=== PATIENT | male | born 1985 | race Caucasian/White ===

== ENCOUNTER 2018-04-22 14:19 | Emergency (ER) | payer OTHER ==
[~2018-04-22] VITALS: Ht 172.7 cm; Wt 61.2 kg
[~2018-04-22 14:19] MED LIST: APAP500 PO; BENTYL 20 MG TA20 M1 PO; BENTYL20 MG PO; CHLORPROMAZINE25 M1; CHLORPROMAZINE25 M1 PO; CHLORPROMAZINE25 M3 PO; CIPRO500 M1 PO; FLEXERIL PO; HYDROCODON-ACE1 EAC7 PO; HYDROCODON-ACE1 EACH PO; HYDROCODONE-AP1 EAC6 PO; IBUPROFEN 800800 M1 PO; IBUPROFEN 800800 MG PO; MOBIC15 MG PO; NICOTINE TRANSD21 M1 TRANSDERM; NICOTINE TRANSDE7 MG TD; NOHOMEMEDICATIONS; NORCO 5-325 TA1 EAC1 PO; NORCO 5-325 TA1 EACH PO; NORCO 7.5-3251 EACH PO; OMEPRAZOLE 20 M20 M1 PO; PERCOCET 5-3251 EACH PO; PHENERGAN 25 MG25 M1 PO; PROMETHAZINE12.5 M1 PO; ROBAXIN500 MG PO; TORADOL 10 MG T10 MG PO; TRAMADOL 50 MG50 MG PO; TUMS PO; ULTRAM 50MG TAB50 MG PO; ULTRAM50 MG PO; ZANTAC 150MG T150 M1 PO
[2018-04-22] MEDS ORDERED: IBUPROFEN 800800 M1 PO (14:29)
[2018-04-22] MEDS ORDERED: AUGMENTIN 875-1 EACH PO (16:45)
[2018-04-22] MEDS ORDERED: HYDROCODONE-AP1 EAC6 PO (16:48)
[2018-04-22 17:00] VITALS: BP 118/78
== END 2018-04-22 17:02 | disposition home or self-care (01) ==
LOC: M.ERS 14:19
DX: S02.82XD Fracture of other specified skull and facial bones, left side, subsequent encounter for fracture with routine healing (principal); X58.XXXD Exposure to other specified factors, subsequent encounter; F17.210 Nicotine dependence, cigarettes, uncomplicated; Z90.49 Acquired absence of other specified parts of digestive tract

== ENCOUNTER 2018-04-25 09:59 | Inpatient (IN) | payer OTHER ==
[~2018-04-25] VITALS: Ht 172.7 cm; Wt 63.5 kg
[~2018-04-25 09:59] MED LIST changes: +AUGMENTIN 875-1 EACH PO
[2018-04-25 10:03] VITALS: BP 125/85
[2018-04-25 10:49] LABS: ABSOLUTE EOSINOPHILS 0.3 thou/uL (0.0-0.7); ABSOLUTE LYMPHOCYTES 1.7 thou/uL (0.8-5.3); ABSOLUTE MONOCYTES 0.9 thou/uL (0.0-1.2); ABSOLUTE NEUTROPHILS 5.6 thou/uL (1.6-8.1); BASOPHILS 0.3 %; EOSINOPHILS 3.8 %; HEMOGLOBIN 15.1 gm/dL (14.0-18.0); LYMPHOCYTES 20.3 %; MCH 29.7 pg (26.0-34.0); MCHC 33.5 g/dL (28.0-37.0); MCV 88.5 fL (80.0-100.0); MONOCYTES 10.1 %; MPV 6.9 fl. (7.2-11.1); NUCLEATED RBCS 0 /100WBC; PLATELET COUNT* 293 thou/uL (150-400); POLYS 65.5 %; RBC 5.08 mil/uL (4.50-6.00); RDW-CV 13.7 % (10.5-14.5); WBC 8.5 thou/uL (4.0-11.0)
[2018-04-25 11:02] LABS: CALCIUM 9.2 mg/dL (8.5-10.1); CREATININE 0.8 mg/dL (0.6-1.3); POTASSIUM 3.9 mmol/L (3.5-5.1)
[2018-04-25 11:07] LABS: ALBUMIN 3.7 g/dL (3.4-5.0); TOTAL BILIRUBIN 0.3 mg/dL (<0.1-1.0)
[2018-04-25 16:32] VITALS: BP 117/65
[2018-04-25 16:34] VITALS: BP 117/65
--- NOTE | 2018-04-25 16:46 | NUR ---
PATIENT CAME TO THE FLOOR FROM THE ER VIA CART. AMBULATED STEADILY TO THE BED, PATIENT IS UP AD TOLU IN ROOM, REGULAR DIET. SOME PAIN IN LEFT SIDE OF FACE AND SWELLING. VITAL SIGNS STABLE ON ROOM AIR. ORIENTED TO ROOM, ADMISSION ASSESSMENT DONE AND QUESTIONS ANSWERED FOR PATIENT. CALL LIGHT IS IN REACH, WILL CONTINUE TO MONITOR.
--- NOTE | 2018-04-25 18:19 | NUR ---
PATIENT IS ALERT AND ORIENTED SINCE ARRIVING TO THE FLOOR. SOME COMPLAINTS OF PAIN THAT IS SOMEWHAT CONTROLLED BY PAIN MEDICATIONS. PATIENT IS UP AD TOLU IN ROOM, VITAL SIGNS STABLE. CALL LIGHT IS IN REACH, WILL CONTINUE TO MONITOR.
[2018-04-25 20:00] VITALS: BP 126/72; BP 137/56
[2018-04-26 04:15] LABS: HEMOGLOBIN 14.6 gm/dL (14.0-18.0); MCH 29.3 pg (26.0-34.0); MCHC 32.5 g/dL (28.0-37.0); MPV 7.2 fl. (7.2-11.1); RDW-CV 13.9 % (10.5-14.5); WBC 11.5 thou/uL (4.0-11.0)
[2018-04-26 04:50] LABS: CALCIUM 9.1 mg/dL (8.5-10.1); CREATININE 0.7 mg/dL (0.6-1.3); MAGNESIUM 1.9 mg/dL (1.8-2.4); POTASSIUM 3.5 mmol/L (3.5-5.1)
--- NOTE | 2018-04-26 05:19 | NUR ---
PT SLEPT AT INTERVALS DURING THE NIGHT, UP AD TOLU, IV FLUIDS AND ANTIBIOTICS GIVEN, PRN PAIN AND ORAL PAIN MEDS FOR LEFT SIDE OF THE FACE, CALL LIGHT IN REACH, WILL CONTINUE TO MONITOR
[2018-04-26 08:00] VITALS: BP 118/68
[2018-04-26 16:26] VITALS: BP 132/64
--- NOTE | 2018-04-26 18:54 | NUR ---
ASSUMED CARE THIS AM, EDEMA DECREASED, PAT IVF AND IV ABT WELL, UP AD TOLU, CALL LIGHT IN REACH, CONT POC.
--- NOTE | 2018-04-26 23:51 | NUR ---
PT ALERT ORINTED. UP AD TOLU IN HALLS. PT TOOK SHOWER TONIGHT. PAIN MEDICATION GIVEN FOR L SIDED FACIAL PAIN. WILL CONTINUE TO MONITOR.
[2018-04-27 04:14] LABS: HEMATOCRIT 41.8 % (42.0-52.0); HEMOGLOBIN 13.5 gm/dL (14.0-18.0); MCH 28.9 pg (26.0-34.0); MCHC 32.3 g/dL (28.0-37.0); MCV 89.7 fL (80.0-100.0); MPV 7.4 fl. (7.2-11.1); RBC 4.66 mil/uL (4.50-6.00); RDW-CV 13.5 % (10.5-14.5); WBC 14.5 thou/uL (4.0-11.0)
[2018-04-27 04:32] LABS: CALCIUM 8.8 mg/dL (8.5-10.1); CREATININE 0.7 mg/dL (0.6-1.3); POTASSIUM 4.3 mmol/L (3.5-5.1)
[2018-04-27 08:00] VITALS: BP 128/70
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
--- NOTE | 2018-04-27 16:42 | NUR ---
RESUMED CARE THIS AM, EDEMA IS MINUTE. CONT TO PAT IV ABT AND IVF WITHOUT INCIDENT, DISCOMFORT MANAGED WELL WITH MEDICATION. UP AD TOLU, PAT DIET WELL, ABT CHANGED TO ORAL AUGMENTIN, FAMILY AT BEDSIDE, CARE PLAN REVIEWED WITH PATIENT, DENIES QUESTIONS AT THIS TIME, CONT POC.
[2018-04-27 16:48] VITALS: BP 134/85
[2018-04-27 19:40] VITALS: BP 145/90
--- NOTE | 2018-04-28 05:53 | NUR ---
A&O X4 CALM COOPERITVE. RA. SL. ADLIB. VITALS WNL. SEE MAR. SEE CHARTING. HOURLY ROUNDING FOR SAFETY.
[2018-04-28 08:00] VITALS: BP 141/91
[2018-04-28] MEDS ORDERED: HYDROCODONE-AP1 EAC6 PO (10:13)
[2018-04-28] MEDS ORDERED: AUGMENTIN 875-1 EACH PO (10:13)
[2018-04-28 12:05] VITALS: BP 141/91
--- NOTE | 2018-04-28 13:00 | NUR ---
DISCHARGE ORDERS RECEIVED. PATIENT EDUCATED ON DISCHARGE INSTRUCTIONS, VERBALIZED UNDERSTANDING. GIVEN WRITTEN DISCHARGE INSTRUCTIONS FOR REINFORCMENT TEACHING. SALINE LOCK TERESA'Mariel.
--- NOTE | 2018-04-28 16:00 | NUR ---
PATIENT LEFT UNIT WITHOUT NOTIFING NURSING - LEFT PERSONAL BELONGINGS IN ROOM, SUIT CASE, BACK PACK FILLED WITH PERSONAL BELONGINGS. THESE BELONGINGS COLLECTED AND INVENTORY COMPLETED BY SECURITY - BELONGINGS TAKEN TO SECURITY FOR LOCK UP AT THIS TIME IN CASE PATIENT RETURNS TO COLLECT BELONGINGS.
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
== END 2018-04-28 13:30 | disposition home or self-care (01) | DRG 603 ==
LOC: M.ERS 09:59 → M.3W 14:21 → M.TBA-ER 14:21 → M.3W 16:16
PROVIDERS: Physician Assistant; ADMIT Family Medicine
DX: L03.213 Periorbital cellulitis (principal); F17.210 Nicotine dependence, cigarettes, uncomplicated; N62 Hypertrophy of breast; J32.0 Chronic maxillary sinusitis; Z90.49 Acquired absence of other specified parts of digestive tract; Z79.899 Other long term (current) drug therapy; Z87.81 Personal history of (healed) traumatic fracture

== ENCOUNTER 2018-05-09 13:47 | Emergency (ER) | payer OTHER ==
[~2018-05-09] VITALS: Ht 172.7 cm; Wt 63.5 kg
[2018-05-09 13:54] VITALS: BP 113/80
[2018-05-09] MEDS ORDERED: HYDROCODONE-AP1 EAC6 PO (14:27)
[2018-05-09] MEDS ORDERED: CLEOCIN HCL150 MG PO (14:27)
== END 2018-05-09 14:34 | disposition home or self-care (01) ==
LOC: M.ERS 13:47
DX: R51 Headache (principal); F17.210 Nicotine dependence, cigarettes, uncomplicated; Z90.49 Acquired absence of other specified parts of digestive tract